=== PATIENT | female | born 1985 | race Caucasian/White ===

== ENCOUNTER 2018-04-04 16:43 | Emergency (ER) | payer SELFPAY ==
[~2018-04-04] VITALS: Ht 170.2 cm; Wt 61.4 kg
[2018-04-04 16:49] VITALS: Ht 170.2 cm; Wt 61.4 kg
[2018-04-04 18:19] LABS: APPEARANCE CLEAR (CLEAR); BILIRUBIN NEGATIVE (NEGATIVE); COLOR YELLOW (YELLOW); GLUCOSE NEGATIVE (NEGATIVE); KETONE NEGATIVE (NEGATIVE); NITRITE NEGATIVE (NEGATIVE); PROTEIN NEGATIVE (NEGATIVE); UROBILINOGEN NORMAL (NORMAL)
[2018-04-04 18:53] LABS: BASOPHILS 0.3 % (0-2); EOSINOPHILS 1.2 % (0-7); HEMATOCRIT 32.1 % (36.0-48.0); HEMOGLOBIN 9.9 g/dL (12-16); IMMATURE GRANULOCYTES 0.2 % (0-5); LYMPHOCYTES 29.5 % (15-50); MCH 26.6 pg (26.0-34.0); MCHC 30.8 g/dL (31.0-37.0); MCV 86.3 fL (80.0-100.0); MEAN PLATELET VOLUME 9.6 fL (7.4-10.4); MONOCYTES 6.9 % (2-11); NEUTROPHILS 61.9 % (40-80); PLATELET COUNT 216 10x3/uL (130-400); RBC 3.72 10x6/uL (4.00-5.40); RDW 16.1 % (11.5-14.5); WBC 5.8 10x3/uL (4.8-10.8)
[2018-04-04 19:14] LABS: ALBUMIN 3.7 g/dL (3.4-5.0); ALKALINE PHOSPHATASE 48 U/L (46-116); ALT (SGPT) 14 U/L (10-68); BILIRUBIN - TOTAL 0.17 mg/dL (0.2-1.3); CALC OSMOLALITY 289 mosm/kg (275-300); CALCIUM 9.1 mg/dL (8.5-10.1); CARBON DIOXIDE 26.8 mmol/L (21.0-32.0); CHLORIDE - SERUM 107 mmol/L (98-107); CREATININE - SERUM 0.8 mg/dL (0.6-1.3); GLUCOSE 101 mg/dL (74-106); POTASSIUM - SERUM 3.6 mmol/L (3.5-5.1); PROTEIN - SERUM 7.5 g/dL (6.4-8.2); SODIUM 145 mmol/L (136-145); UREA NITROGEN 15 mg/dL (7-18); eGFR NON AFRICAN AMERICAN 88 mL/min (90-120)
[2018-04-04] MEDS ORDERED: TORADOL10 MG PO (22:58)
[2018-04-04 23:16] VITALS: BP 150/84
== END 2018-04-04 23:19 | disposition home or self-care (01) ==
LOC: D.ER 16:43
PROVIDERS: Family Medicine
DX: R10.9 Unspecified abdominal pain (principal); R30.0 Dysuria; R10.12 Left upper quadrant pain; F17.200 Nicotine dependence, unspecified, uncomplicated